=== PATIENT | female | born 1985 | race Caucasian/White ===

== ENCOUNTER 2017-12-06 14:55 | Emergency (ER) | payer BC ==
[2017-12-06] MEDS ORDERED: Ketorolac 30 MG/ML SDV IVPUSH ONE (15:05)
[2017-12-06] MEDS ORDERED: methylPREDNISolone Sodium Succinate 125 MG/2 ML SDV IVPUSH ONE (15:05)
--- NOTE | 2017-12-06 15:10 | EDM.PDOC ---
ED HPI GENERAL MEDICAL PROBLEM - General Chief Complaint: Back Pain or Injury Stated Complaint: BACK MUSCLE SPASMS Time Seen by Provider: 12/06/17 15:00 Source of Information: Reports: Patient History Limitations: Reports: No Limitations - History of Present Illness INITIAL COMMENTS - FREE TEXT/NARRATIVE: 32 YO WF presents to ER with back pain x 2 days. Pt denies any injury, but states she has had history of back pain in the past. Pt has been seen by chiropractor without any improvement and has been taking motrin 800mg BID and Flexeril 10mg BID for the last 2 days without improvement. Pt denies any lower extremity weakness or parathesias. Pt denies any radiating pain, no bowel or bladder dysfunction and no saddle parathesias. Pt denies any dysuria, frequency or urgency. Onset Date: 12/04/17 Duration: Day(s): (2) Location: Reports: Back Quality: Reports: Ache Severity: Severe Improves with: Reports: Rest Worsens with: Reports: Movement Associated Symptoms: Reports: No Other Symptoms - Related Data Allergies Allergy/AdvReac Type Severity Reaction Status Date / Time oxycodone Allergy Rash Verified 12/06/17 15:23 Home Meds: Home Meds Cyclobenzaprine [Flexeril] 10 mg PO DAILY 12/06/17 [History] Ibuprofen 800 mg PO Q6HR PRN 12/06/17 [History] Methocarbamol [Robaxin-750] 750 mg PO QID PRN #20 tablet 12/06/17 [Rx] Multivitamin [Multi-Day Vitamins] 1 tab PO DAILY 12/06/17 [History] predniSONE 20 mg PO WITHBREAKFAST #15 tab 12/06/17 [Rx] traMADol HCl [Ultram] 50 mg PO Q6HR PRN #15 tablet 12/06/17 [Rx] ED ROS GENERAL - Review of Systems Review Of Systems: See Below Constitutional: Reports: No Symptoms HEENT: Reports: No Symptoms Respiratory: Reports: No Symptoms Cardiovascular: Reports: No Symptoms Endocrine: Reports: No Symptoms GI/Abdominal: Reports: No Symptoms : Reports: No Symptoms Musculoskeletal: Reports: Back Pain Skin: Reports: No Symptoms Neurological: Reports: No Symptoms Psychiatric: Reports: No Symptoms Hematologic/Lymphatic: Reports: No Symptoms Immunologic: Reports: No Symptoms ED EXAM,LOWER BACK PAIN/INJURY - Physical Exam Exam: See Below Exam Limited By: No Limitations General Appearance: Alert, WD/WN, No Apparent Distress Head: Atraumatic, Normocephalic Neck: Normal Inspection, Supple, Non-Tender, Full Range of Motion Respiratory/Chest: No Respiratory Distress, Lungs Clear, Normal Breath Sounds, No Accessory Muscle Use, Chest Non-Tender Cardiovascular: Normal Peripheral Pulses, Regular Rate, Rhythm, No Edema, No Gallop, No JVD, No Murmur, No Rub GI/Abdominal: Normal Bowel Sounds, Soft, Non-Tender, No Organomegaly, No Distention, No Abnormal Bruit, No Mass Back Exam: Decreased Range of Motion, Muscle Spasm, Paraspinal Tenderness Extremities: Normal Inspection, Normal Range of Motion, Non-Tender, No Pedal Edema, Normal Capillary Refill Neurological: Alert, Normal Mood/Affect, Normal Dorsiflexion, CN II-XII Intact, Normal Plantar Flexion, Normal Gait, Normal Reflexes, No Motor/Sensory Deficits , Oriented x 3 Psychiatric: Normal Affect, Normal Mood Skin Exam: Warm, Dry, Intact, Normal Color, No Rash Lymphatic: No Adenopathy Course - Orders/Labs/Meds Orders: Active Orders 24 hr Category Date Time Status Peripheral IV Care [RC] . DIRECTED Care 12/06/17 15:11 Ordered UA W/MICROSCOPIC [URIN] Stat Lab 12/06/17 15:10 Ordered Sodium Chloride 0.9% [Syrex Flush] Med 12/06/17 15:11 Ordered 5 ml FLUSH Q8HR PRN Peripheral IV Insertion Adult [OM.PC] Routine Oth 12/06/17 15:11 Ordered Medication Orders Sodium Chloride (Syrex Flush) 5 ml FLUSH Q8HR PRN PRN Reason: Keep Vein Open Labs: Laboratory Tests 12/06/17 12/06/17 Range/Units 15:15 15:15 Urine Color Yellow (YELLOW) Urine Appearance Clear (CLEAR) Urine pH 6.0 (5.0-9.0) Ur Specific Campbell 1.010 (1.005-1.030) Urine Protein Negative (NEGATIVE) mg/dL Urine Glucose (UA) Negative (NEGATIVE) mg/dL Urine Ketones Negative (NEGATIVE) mg/dL Urine Occult Blood Negative (NEGATIVE) Urine Nitrite Negative (NEGATIVE) Urine Bilirubin Negative (NEGATIVE) Urine Urobilinogen 0.2 (0.2-1.0) E.U./dL Ur Leukocyte Esterase Negative (NEGATIVE) Urine HCG, Qual Negative (NEGATIVE) Meds: Medications Generic Name Dose Route Start Last Admin Trade Name Freq PRN Reason Stop Dose Admin Sodium Chloride 5 ml 12/06/17 15:11 Syrex Flush FLUSH Q8HR PRN Keep Vein Open Discontinued Medications Generic Name Dose Route Start Last Admin Trade Name Hung PRN Reason Stop Dose Admin Diazepam 5 mg 12/06/17 15:05 Valium IVPUSH 12/06/17 15:06 ONETIME ONE Ketorolac Tromethamine 30 mg 12/06/17 15:05 Toradol IVPUSH 12/06/17 15:06 ONETIME ONE Methylprednisolone Sodium Succinate 125 mg 12/06/17 15:05 Solu-Medrol IVPUSH 12/06/17 15:06 ONETIME ONE Departure - Departure Time of Disposition: 16:07 Disposition: Home, Self-Care 01 Condition: Good Clinical Impression: Sacroiliac inflammation Low back pain Qualifiers: Chronicity: acute Sciatica presence: without sciatica - Discharge Information Prescriptions: traMADol HCl [Ultram] 50 mg PO Q6HR PRN #15 tablet PRN Reason: Pain Methocarbamol [Robaxin-750] 750 mg PO QID PRN #20 tablet PRN Reason: Muscle Spasm predniSONE 20 mg PO WITHBREAKFAST #15 tab Instructions: Back Exercises, Back Pain, Adult Referrals: Corinna George PA-C [Primary Care Provider] - Forms: ED Department Discharge Additional Instructions: 1. discharge home 2. ultram 50mg PO q6 PRN pain #15 3. prednisone 60mg PO QD x 5 days 4. robaxin 750mg #20 QID PRN muscle spasms 5. follow up in clinic for further evaluation and treatment 6. heat/massage/TENS/stretching 7. return to ER for worsening symptoms - My Orders Last 24 Hours: My Active Orders 12/06/17 15:10 UA W/MICROSCOPIC [URIN] Stat 12/06/17 15:11 Peripheral IV Care [RC] . DIRECTED Sodium Chloride 0.9% [Syrex Flush] 5 ml FLUSH Q8HR PRN Peripheral IV Insertion Adult [OM.PC] Routine - Assessment/Plan Last 24 Hours: My Active Orders 12/06/17 15:10 UA W/MICROSCOPIC [URIN] Stat 12/06/17 15:11 Peripheral IV Care [RC] . DIRECTED Sodium Chloride 0.9% [Syrex Flush] 5 ml FLUSH Q8HR PRN Peripheral IV Insertion Adult [OM.PC] Routine Assessment:: 1. sacroilitis 2. low back pain Plan: 1. discharge home 2. ultram 50mg PO q6 PRN pain #15 3. prednisone 60mg PO QD x 5 days 4. robaxin 750mg #20 QID PRN muscle spasms 5. follow up in clinic for further evaluation and treatment 6. heat/massage/TENS/stretching 7. return to ER for worsening symptoms
[2017-12-06] MEDS ORDERED: Sodium Chloride 0.9% 5 ML Syringe FLUSH PRN (15:11)
[2017-12-06] MEDS ORDERED: LORazepam 2 MG/ML SDV IVPUSH ONE (15:37)
[2017-12-06] MEDS ORDERED: HYDROmorphone 1 MG/ML Syringe IVPUSH ONE (16:17)
[2017-12-06] MEDS ORDERED: HYDROmorphone 1 MG/ML Syringe ONE (16:20)
== END 2017-12-06 16:50 | disposition home or self-care (01) ==
LOC: KA.ED 14:55
DX: M46.1 Sacroiliitis, not elsewhere classified (principal); Z88.6 Allergy status to analgesic agent
CPT/HCPCS: 81001; 81025; 96374; 96375; 99283; J1170; J1885; J2060; J2930